=== PATIENT | male | born 1990 | race Caucasian/White ===

== ENCOUNTER 2019-06-16 09:04 | Emergency (ER) | payer BC ==
[~2019-06-16] VITALS: Ht 177.8 cm; Wt 181.8 kg
[~2019-06-16 09:04] MED LIST: APRISO0.375 GM PO; BACTRIM DS 8001 TAB PO; CEPHALEXIN500 M1 PO
[2019-06-16 09:12] VITALS: TEMP 97.9
[2019-06-16 10:21] LABS: BASO # 0.1 (0.0-0.2); BASO % 0.4 % (0.0-2.0); EOS # 0.4 (0.0-0.7); EOS % 3.1 % (0-4.0); GRAN # 8.5 (1.4-6.5); GRAN % 75.3 % (42.2-75.2); HEMOGLOBIN 17.1 g/dl (13.5-18.0); LYMPH # 1.5 (1.2-3.4); MEAN CELL VOLUME 90 fl (80.0-100.0); MEAN CORPUSCULAR HEMOGLOBIN 29 pg (27.0-31.0); MEAN CORPUSCULAR HGB CONC 32 g/dl (33.0-37.0); MEAN PLATELET VOLUME 11.1 fl (7.4-10.4); MONO # 0.9 (0.1-0.6); MONO % 7.7 % (1.7-9.3); PLATELET COUNT 265 K/mm3 (130-400); RED BLOOD COUNT 5.85 M/mm3 (4.20-5.60); REDCELL DISTRIBUTION WIDTH-CV 12.7 % (11.5-14.5)
[2019-06-16 10:30] LABS: HEMATOCRIT 52.8 % (42.0-52.0)
[2019-06-16 12:48] LABS: COLLECTION METHOD CLEAN CATCH
[2019-06-16 12:58] LABS: MUCOUS Present /lpf; PH 6 (5-8); SQUAMOUS EPITHELIAL None Seen /hpf; URINE APPEARANCE Clear; URINE BACTERIA None Seen /hpf; URINE BILIRUBIN Negative (NEGATIVE); URINE BLOOD Negative (NEGATIVE); URINE COLOR Yellow; URINE GLUCOSE Negative (NEGATIVE); URINE KETONE Negative (NEGATIVE); URINE LEUKOCYTE ESTERASE Negative (NEGATIVE); URINE NITRATE Negative (NEGATIVE); URINE PROTEIN(semi-quant) Negative (NEGATIVE); URINE RBC 0-2 /hpf
[2019-06-16] MEDS ORDERED: DOXYCYCLINE 10100 MG PO (13:42)
[2019-06-16] MEDS ORDERED: NORCO 325 MG-7.1 TAB PO (13:42)
[2019-06-16 14:42] VITALS: BP 139/79; PULSE 96
== END 2019-06-16 14:42 | disposition home or self-care (01) ==
LOC: COL.ER 09:04
PROVIDERS: Physician Assistant
DX: N45.3 Epididymo-orchitis (principal); E66.9 Obesity, unspecified; Z98.890 Other specified postprocedural states; Z87.19 Personal history of other diseases of the digestive system
CPT/HCPCS: J0696; J1170; J2270; J2405; J7030; Q9967

== ENCOUNTER 2019-06-19 16:00 | Inpatient (IN) | payer BC ==
[~2019-06-19] VITALS: Ht 177.8 cm; Wt 160.8 kg
[~2019-06-19 16:00] MED LIST changes: +DOXYCYCLINE 10100 MG PO; +NORCO 325 MG-7.1 TAB PO
[2019-06-19 16:51] LABS: BASO # 0.1 (0.0-0.2); BASO % 0.3 % (0.0-2.0); EOS # 0.1 (0.0-0.7); EOS % 0.5 % (0-4.0); GRAN # 12.8 (1.4-6.5); HEMATOCRIT 50.6 % (42.0-52.0); HEMOGLOBIN 16.6 g/dl (13.5-18.0); LYMPH # 1.1 (1.2-3.4); LYMPH % 7.3 % (20.0-51.0); MEAN CELL VOLUME 89 fl (80.0-100.0); MEAN CORPUSCULAR HEMOGLOBIN 29 pg (27.0-31.0); MEAN CORPUSCULAR HGB CONC 33 g/dl (33.0-37.0); MEAN PLATELET VOLUME 10.6 fl (7.4-10.4); MONO # 1.1 (0.1-0.6); MONO % 7.2 % (1.7-9.3); PLATELET COUNT 250 K/mm3 (130-400); RED BLOOD COUNT 5.68 M/mm3 (4.20-5.60); REDCELL DISTRIBUTION WIDTH-CV 12.7 % (11.5-14.5)
[2019-06-19 17:08] LABS: BILIRUBIN,TOTAL 2.8 mg/dL (0.0-1.0); CALCIUM 8.9 mg/dL (8.4-10.2); CREATININE, serum 1.26 (0.66-1.25); POTASSIUM 3.6 mmol/L (3.4-5.0); TOTAL PROTEIN 7.9 gm/dL (6.4-8.2)
[2019-06-19 17:39] VITALS: BP 131/74; PULSE 114; TEMP 100
[2019-06-19 18:00] VITALS: BP 102/69; PULSE 108; TEMP 98.8
[2019-06-19 22:22] VITALS: BP 128/71; PULSE 99; TEMP 98.7
[2019-06-19 22:27] LABS: COLLECTION METHOD CLEAN CATCH
[2019-06-19 22:41] LABS: MUCOUS Present /lpf; PH 6 (5-8); SQUAMOUS EPITHELIAL None Seen /hpf; URINE APPEARANCE Turbid; URINE BACTERIA Occasional /hpf; URINE BILIRUBIN Positive (NEGATIVE); URINE BLOOD Negative (NEGATIVE); URINE COLOR Amber; URINE GLUCOSE Negative (NEGATIVE); URINE KETONE 1+ (NEGATIVE); URINE LEUKOCYTE ESTERASE Negative (NEGATIVE); URINE NITRATE Negative (NEGATIVE); URINE PROTEIN(semi-quant) 2+ (NEGATIVE); URINE RBC 0-2 /hpf; URINE UROBILINOGEN >=4.0 mg/dL (NEGATIVE)
[2019-06-20] VITALS (7 sets, daily range): BP systolic 112–140; BP diastolic 68–80; PULSE 93–103; TEMP 97.8–98.7
--- NOTE | 2019-06-20 05:25 | NUR ---
PT REQUEST PAIN MED FOR SCROTAL PAIN. NO CHANGE IN STATUS. SEE MAR FOR PAIN MED GIVEN. PT REQUEST SLEEPING MED FOR TONIGHT. WILL REPORT TO NEXT SHIFT.
[2019-06-20 07:21] LABS: BASO # 0.1 (0.0-0.2); BASO % 0.4 % (0.0-2.0); EOS # 0.2 (0.0-0.7); EOS % 1.4 % (0-4.0); GRAN # 9.1 (1.4-6.5); GRAN % 76.4 % (42.2-75.2); HEMATOCRIT 48.8 % (42.0-52.0); HEMOGLOBIN 15.8 g/dl (13.5-18.0); LYMPH # 1.3 (1.2-3.4); LYMPH % 10.9 % (20.0-51.0); MEAN CELL VOLUME 90 fl (80.0-100.0); MEAN CORPUSCULAR HEMOGLOBIN 29 pg (27.0-31.0); MEAN CORPUSCULAR HGB CONC 32 g/dl (33.0-37.0); MEAN PLATELET VOLUME 10.7 fl (7.4-10.4); MONO # 1.2 (0.1-0.6); MONO % 10.2 % (1.7-9.3); PLATELET COUNT 261 K/mm3 (130-400); RED BLOOD COUNT 5.42 M/mm3 (4.20-5.60); REDCELL DISTRIBUTION WIDTH-CV 12.9 % (11.5-14.5)
--- NOTE | 2019-06-20 10:13 | NUR ---
Initial visit; Patient thanked Apiarist for looking in on him and offering spiritual care, though patient declined at this time.
--- NOTE | 2019-06-20 11:36 | NUR ---
Senior Property Accountant met with patient to discuss discharge planning. Patient lives outside of [place] with his mother, Radha (ph#[phone]). Patient sees Dr. Pimentel for primary care and obtains medications from [facility] pharmacy with no difficulties. Patient does not use any DME and also does not have Advance Directives. Patient not interested in setting up AD at this time. Patient plans to return home upon discharge. No additional concerns at this time.
--- NOTE | 2019-06-20 19:25 | NUR ---
PT HAD NO ISSUES OR CONCERNS VOICED THIS SHIFT. NEEDED ONE DOSE OF NORCO THIS SHIFT. IV FLUIDS INFUSING WITHOUT ISSUES. GROIN ELEVATED, OFFERED ICE THROUGHOUT SHIFT AND DENIED NEED.
--- NOTE | 2019-06-20 20:30 | NUR ---
Initial shift assessment done- requesting pain pill for pain 5/10 to scrotum,also requesting melatonin for sleep- will give as ordered, Scrotun remains edematous and red- elevated and ice put on at this time
[2019-06-21 00:10] VITALS: BP 132/66; PULSE 90; TEMP 98.4
[2019-06-21 03:51] VITALS: BP 121/74; PULSE 101; TEMP 98.6
--- NOTE | 2019-06-21 06:01 | NUR ---
Quiet night- no requests- states does not need pain meds at this time-did sleep well last night
[2019-06-21 08:26] VITALS: BP 117/62; PULSE 89; TEMP 98.7
[2019-06-21 12:16] VITALS: BP 128/62; PULSE 95; TEMP 98
[2019-06-21 16:34] VITALS: BP 123/68; PULSE 91; TEMP 98.1
--- NOTE | 2019-06-21 19:32 | NUR ---
PT HAD UNEVENTFUL DAY. HAS NEEDED PAIN MEDS A COUPLE OF TIMES THIS SHIFT. ICE APPLIED ONCE THIS AM. NO NOTED SWELLING REDUCTION.
--- NOTE | 2019-06-21 20:00 | NUR ---
Pt resting in bed. No distress noted. Pt reports that pain is controlled at this time with pain medication that given by dayshift. Scrotum is edematous and reddened. Pt reports that he thinks it is looking better. Scrotum elevated with pillow case. Pt denies need for Ice pack at this time. Respraitons even and unlabored. Lungs clear. Abdomen soft, nontedner. BS+. Pt voiding without difficulty. Pt denies needs.
[2019-06-21 20:27] VITALS: BP 141/75; PULSE 96; TEMP 98.7
[2019-06-22 00:41] VITALS: BP 135/71; PULSE 87; TEMP 98.3
[2019-06-22 04:02] VITALS: BP 139/76; PULSE 91; TEMP 97.8
--- NOTE | 2019-06-22 06:00 | NUR ---
Pt sleeping this AM. No distress noted. He has rested well throughout the night without complaints.
--- NOTE | 2019-06-22 07:20 | NUR ---
Reports desi to Lisseth RAMOS.
[2019-06-22 08:39] VITALS: BP 134/75; PULSE 94; TEMP 98.2
--- NOTE | 2019-06-22 10:25 | NUR ---
Pt assessment completed and charted. Pt A&O, laying in bed, scrotum elevated w/ pillowcase, denies pain medication at this time, denies need for ice pack. IVF infusing to LAC w/o complications. LS cta, BSx4, heart RRR, pulses strong bilaterally. Pt denies other needs at this time. Call light within reach.
--- NOTE | 2019-06-22 10:31 | NUR ---
Pt to discharge, attempted to contact Dr. Mendez for clarification on discharge prescriptions. Awaiting call back at this time. Pt also requesting pain medication. [place] PRN administered per AUG.
[2019-06-22] MEDS ORDERED: LEVAQUIN 5500 MG/TA1 PO (10:43)
--- NOTE | 2019-06-22 10:49 | NUR ---
Dr. Mendez returned phone call, prescriptions clarified. Discharge instructions discussed and reviewed w/ patient who verbalized understanding. All questions answered. LAC IV dc'd w/ catheter tip intact and no complications. No further needs expressed. Pt awaiting ride for discharge.
--- NOTE | 2019-06-22 12:01 | NUR ---
Pt escorted out via WC by this nurse. No further needs expressed.
== END 2019-06-22 12:02 | disposition home health service (06) | DRG 728 ==
LOC: COL.ER 16:00 → MEDICAL 16:33
PROVIDERS: Family Medicine; ADMIT Urology
DX: N45.3 Epididymo-orchitis (principal); Z79.891 Long term (current) use of opiate analgesic; Z88.1 Allergy status to other antibiotic agents
CPT/HCPCS: J0696; J1956; J2405; J3010; J7030

== ENCOUNTER → 2019-11-27 | Outpatient (CLI) | payer BC ==
[~2019-11-27] MED LIST changes: +LEVAQUIN 5500 MG/TA1 PO
== END ==
LOC: COL.RAD 13:54
DX: N43.3 Hydrocele, unspecified (principal)

== ENCOUNTER 2019-12-09 12:57 | Observation (INO) | payer BC ==
[~2019-12-09] VITALS: Ht 175.3 cm; Wt 144.8 kg
[2019-12-09] VITALS (11 sets, daily range): BP systolic 121–147; BP diastolic 57–82; PULSE 95–126; TEMP 97.7–99.5
--- NOTE | 2019-12-09 18:56 | NUR ---
Patient has done well since up from OR. Drowsy and arouses to voice and touch. Low transverse dressing with shadowing noted on dressing. Scrotal support on. Post op VSS. Post op fluids to right hand without complications. Denies further needs at this time. Reported off to rn shift mgr.
--- NOTE | 2019-12-09 20:33 | NUR ---
Received report form Lesvia Albarado. Pt has been sleeping until now. pt dressig did have some drainage but has not changed since shift report. Pt incision site has been monitored. Pt vital has also been the same since bedside resport was given. Pt heart rate has been from 110-119 but Lesvia Albarado stated that his heart rate has been in this range since he's arrived. Pt is currently tolerating ice chips well. Pt has his call light within reach at this time.
--- NOTE | 2019-12-10 | NUR ---
Pt has ambulated to the restroom twice during the shift. Pt stated that his pain is ok at this time. Pt dressing on his lower abdomen did have some drainage seen through the dressing. The dressing was reinforced with a 2 4x4's and tape. Pt has had no other concerns throughout the night. Pt has his call light within reach. Has been tolerating fluids well during the night.
[2019-12-10 03:44] VITALS: BP 108/58; PULSE 101; TEMP 97.9
--- NOTE | 2019-12-10 06:39 | NUR ---
Pt currently sleeping in bed at this time. Call light within reach.
--- NOTE | 2019-12-10 07:19 | NUR ---
Reported off to RICHARD Baumann. Pt is currently sleeping in bed. Pt has his call light within reach.
[2019-12-10 08:29] VITALS: BP 131/71; PULSE 98; TEMP 98.1
--- NOTE | 2019-12-10 08:33 | NUR ---
Assessment completed, alert/oriented, vital signs stable, reports moderate pain discomfort, reports tolerating PO intake well, abd soft/ BS sluggish, I encouraged ambulation, patient is voiding urine without difficulty, jock strap for support, RLQ/ suprapubic incision has some bloody drainainge and dressing reinforced, has been by to eval patient and stated he would check back in later to see how patient is doing and possible D/C if he is feeling up to it, advancing diet, will continue to monitor
--- NOTE | 2019-12-10 09:46 | NUR ---
SW met with the patient to discuss discharge plan. The patient lives in [place] with his mother, Padmini (ph#[phone]). He reports independence with ADLs and does not have any DME. The patient's PCP is Dr. Fab Pimentel and he receives his medications at [facility]. He reports no difficulties obtaining his meds. The patient does not have advanced directives and he was not interested in completing them at this time. The patient plans to return home with his mother upon discharge. No additional needs at this time.
--- NOTE | 2019-12-10 11:26 | NUR ---
First visit from the military aircraft designer. No needs right now.
[2019-12-10 11:36] VITALS: BP 135/78; PULSE 93; TEMP 98
[2019-12-10 16:26] VITALS: BP 127/70; PULSE 95; TEMP 98.1
[2019-12-10 20:00] VITALS: BP 140/77; PULSE 101; TEMP 97.8
--- NOTE | 2019-12-10 21:20 | NUR ---
Resting in bed. Assessment complete. Lungs clear. Heart sounds normal. Bowels active x4. Pulses strong throughout. No edema noted. INT right hand without complications. ABD incision dressing with drainage. Does not need reinforced at this time. Jock strap on as ordered. Denies pain at this time. Denies other needs. Call light in reach.
--- NOTE | 2019-12-11 00:10 | NUR ---
Resting in bed. Dressing to ABD reinforced at this time. Denies other needs. Call light in reach.
[2019-12-11 00:17] VITALS: BP 146/64; PULSE 101; TEMP 98.2
[2019-12-11 04:00] VITALS: BP 153/76; PULSE 102; TEMP 98.3
--- NOTE | 2019-12-11 04:14 | NUR ---
Resting in bed. Denies needs. call light in reach.
--- NOTE | 2019-12-11 06:24 | NUR ---
Patient had uneventful night. Resting in bed this AM. ABD dressing reinforced during night . Denies needs this AM. Call light in reach.
[2019-12-11 07:09] VITALS: BP 138/69; PULSE 96; TEMP 98.3
--- NOTE | 2019-12-11 07:09 | NUR ---
Report given to RICHARD Blanchard
--- NOTE | 2019-12-11 09:02 | NUR ---
Patient resting in bed. Alert & oriented. Minimal complaints of pain. Patient denies nausea. He reports passing flatus, no BMs since surgery. low transverese gauze dressing intact with drain benath. I encouraged activity & ambulation of the halls. offered hygiene, refused at this time. Scds off at this time.
--- NOTE | 2019-12-11 12:09 | NUR ---
Patient ready for discharge. rounded. [place] drain discontinued per orders. Stitch was removed. New gauze dressing placed to cover teddy. Patient given all discharge instructions including a scricpt for norco & medication safety reviewed. He is aware of follow up appt. We reviewed incision care & signs & symptoms of infections & when to notifty doctor. Patient wheeled out with all belongings, his mother taking him home.
== END 2019-12-11 12:11 | disposition home or self-care (01) ==
LOC: SDCO 12:57 → SURG 19:29 → SDCO 12-10 10:58 → SURG 12-10 11:01 → MEDICAL 12-11 10:04 → SURG 12-11 10:04
PROVIDERS: ADMIT Urology
DX: C62.11 Malignant neoplasm of descended right testis (principal); N43.3 Hydrocele, unspecified; Z88.1 Allergy status to other antibiotic agents; Z80.0 Family history of malignant neoplasm of digestive organs; Z87.19 Personal history of other diseases of the digestive system
CPT/HCPCS: OP; G0378; J0690; J1100; J1170; J2405; J2704; J3010; J7120

== ENCOUNTER → 2020-01-24 | Outpatient (CLI) | payer BC | LOC: COL.PUL 07:41 | DX: C62.90 Malignant neoplasm of unspecified testis, unspecified whether descended or undescended (principal) ==

== ENCOUNTER 2020-04-01 07:30 | Outpatient (RCR) | payer BC ==
[2020-02-19 08:55] LABS: HEMATOCRIT 38.9 % (42.0-52.0); HEMOGLOBIN 13.3 g/dl (13.5-18.0); MEAN CELL VOLUME 87 fl (80.0-100.0); MEAN CORPUSCULAR HEMOGLOBIN 30 pg (27.0-31.0); MEAN CORPUSCULAR HGB CONC 34 g/dl (33.0-37.0); PLATELET COUNT 201 K/mm3 (130-400); RED BLOOD COUNT 4.46 M/mm3 (4.20-5.60)
[2020-02-19 08:59] VITALS: BP 124/77; PULSE 88; TEMP 98.4
[2020-02-19 09:23] LABS: ALBUMIN 3.5 gm/dL (3.5-5.0); BILIRUBIN,TOTAL 0.5 mg/dL (0.0-1.0); CALCIUM 8.6 mg/dL (8.4-10.2); CREATININE, serum 0.88 (0.66-1.25); MAGNESIUM 1.8 mg/dL (1.6-2.3); TOTAL PROTEIN 6.4 gm/dL (6.4-8.2)
[2020-02-19 10:43] LABS: BAND 5 % (0-10); EOSINOPHIL 3 % (0-4); LYMPHOCYTE 71 % (20.0-51.0); METAMYELOCYTE 2 % (0-0); NEUTROPHILS 12 % (42.0-75.2); PLATELET ESTIMATE NORMAL (NORMAL)
--- NOTE | 2020-02-26 15:10 | NUR ---
Here for cares. contacted by EU staff earlier today. with sterile technique right upper arm PICC dressing change done with insertion site cleansed with chloraprep x 1, chlorhexidine impregnated disk applied, skin prep, stat lock, and tegaderm applied. no signs or symptoms of IV complications noted. no concerns voiced. to return next week for cares. voiced understanding of instructions.
[2020-02-26 15:24] VITALS: BP 110/71; PULSE 90; TEMP 98.6
[2020-02-26 15:47] LABS: HEMATOCRIT 40.6 % (42.0-52.0); HEMOGLOBIN 13.6 g/dl (13.5-18.0); MEAN CELL VOLUME 88 fl (80.0-100.0); MEAN CORPUSCULAR HEMOGLOBIN 29 pg (27.0-31.0); MEAN CORPUSCULAR HGB CONC 34 g/dl (33.0-37.0); MEAN PLATELET VOLUME 9.2 fl (7.4-10.4); PLATELET COUNT 375 K/mm3 (130-400); RED BLOOD COUNT 4.63 M/mm3 (4.20-5.60); REDCELL DISTRIBUTION WIDTH-CV 13.3 % (11.5-14.5)
[2020-02-26 15:55] LABS: ALBUMIN 3.6 gm/dL (3.5-5.0); BILIRUBIN,TOTAL 0.4 mg/dL (0.0-1.0); CALCIUM 8.9 mg/dL (8.4-10.2); CREATININE, serum 0.95 (0.66-1.25); POTASSIUM 4.2 mmol/L (3.4-5.0); TOTAL PROTEIN 6.7 gm/dL (6.4-8.2)
[2020-02-26 16:08] LABS: BAND 1 % (0-10); BASOPHIL 1 % (0-2); LYMPHOCYTE 26 % (20.0-51.0); MYELOCYTE 2 % (0-0); NEUTROPHILS 65 % (42.0-75.2)
[2020-02-26 16:09] LABS: ANISOCYTOSIS 1+; PLATELET ESTIMATE NORMAL (NORMAL)
[2020-03-04 07:54] VITALS: BP 125/69; PULSE 87; TEMP 98.2
--- NOTE | 2020-03-04 08:00 | NUR ---
Here for cares. with sterile technique right upper arm PICC dressing change done with insertion site cleansed with chloraprep x 1, chlorhexidine impregnate disk applied, skin prep, stat lock, and tegaderm applied. no signs or symptoms of IV complications noted. no concerns voiced. re-wrapped with teresa to protect catheter. to return next week for cares. voiced understanding of instructions.
[2020-03-04 08:03] LABS: HEMATOCRIT 42.1 % (42.0-52.0); HEMOGLOBIN 14.2 g/dl (13.5-18.0); MEAN CELL VOLUME 87 fl (80.0-100.0); MEAN CORPUSCULAR HEMOGLOBIN 29 pg (27.0-31.0); MEAN CORPUSCULAR HGB CONC 34 g/dl (33.0-37.0); MEAN PLATELET VOLUME 10.4 fl (7.4-10.4); PLATELET COUNT 375 K/mm3 (130-400); RED BLOOD COUNT 4.83 M/mm3 (4.20-5.60); REDCELL DISTRIBUTION WIDTH-CV 14.1 % (11.5-14.5)
[2020-03-04 10:50] LABS: BAND 4 % (0-10); LYMPHOCYTE 3 % (20.0-51.0); METAMYELOCYTE 1 % (0-0); NEUTROPHILS 90 % (42.0-75.2); PLATELET ESTIMATE NORMAL (NORMAL)
[2020-03-11 10:09] VITALS: BP 131/83; PULSE 96; TEMP 98.1
--- NOTE | 2020-03-11 10:15 | NUR ---
Here for cares. Right upper arm PICC intact with sterile dressing change done with insertion site cleansed with choraprep x 1, chlorhexidine impregnated disk applied, skin prep, stat lock, and tegaderm applied. no signs or symptoms of IV complications noted. no conerns voiced. wrapped with teresa to protect catheter. to return next week for cares. voiced understanding of instructions.
[2020-03-11 10:47] LABS: HEMATOCRIT 39.2 % (42.0-52.0); HEMOGLOBIN 13.7 g/dl (13.5-18.0); MEAN CELL VOLUME 85 fl (80.0-100.0); MEAN CORPUSCULAR HEMOGLOBIN 30 pg (27.0-31.0); MEAN CORPUSCULAR HGB CONC 35 g/dl (33.0-37.0); MEAN PLATELET VOLUME 10.8 fl (7.4-10.4); PLATELET COUNT 138 K/mm3 (130-400); RED BLOOD COUNT 4.62 M/mm3 (4.20-5.60); REDCELL DISTRIBUTION WIDTH-CV 13.2 % (11.5-14.5)
[2020-03-11 11:04] LABS: EOSINOPHIL 1 % (0-4); LYMPHOCYTE 43 % (20.0-51.0); NEUTROPHILS 54 % (42.0-75.2)
[2020-03-11 11:05] LABS: PLATELET ESTIMATE NORMAL (NORMAL)
--- NOTE | 2020-03-18 10:00 | NUR ---
here for cares. PICC intact right upper arm. Dressing change done with sterile technique. Insertion site cleansed with ChloraPrep 1, chlorhexidine impregnated disc applied, skin prep, StatLock, and Tegaderm applied. No signs or symptoms of IV complications noted. No concerns voiced. Arm wrapped with Wayne to protect catheter. Patient to return next week for cares. Patient voiced understanding of instructions.
[2020-03-18 10:14] VITALS: BP 119/61; PULSE 90; TEMP 97.8
[2020-03-18 10:24] LABS: HEMATOCRIT 37.1 % (42.0-52.0); HEMOGLOBIN 12.6 g/dl (13.5-18.0); MEAN CELL VOLUME 87 fl (80.0-100.0); MEAN CORPUSCULAR HEMOGLOBIN 29 pg (27.0-31.0); MEAN CORPUSCULAR HGB CONC 34 g/dl (33.0-37.0); MEAN PLATELET VOLUME 9.3 fl (7.4-10.4); PLATELET COUNT 204 K/mm3 (130-400); RED BLOOD COUNT 4.28 M/mm3 (4.20-5.60); REDCELL DISTRIBUTION WIDTH-CV 14.1 % (11.5-14.5)
[2020-03-18 10:38] LABS: ALBUMIN 3.6 gm/dL (3.5-5.0); BILIRUBIN,TOTAL 0.5 mg/dL (0.0-1.0); CALCIUM 8.7 mg/dL (8.4-10.2); CREATININE, serum 0.91 (0.66-1.25); MAGNESIUM 1.6 mg/dL (1.6-2.3); POTASSIUM 4.2 mmol/L (3.4-5.0); TOTAL PROTEIN 6.2 gm/dL (6.4-8.2)
[2020-03-18 12:06] LABS: BAND 1 % (0-10); EOSINOPHIL 3 % (0-4); NEUTROPHILS 1 % (42.0-75.2); NUCLEATED RED BLOOD CELL 1 (0-6); PLATELET ESTIMATE NORMAL (NORMAL)
[2020-03-18 12:07] LABS: LYMPHOCYTE 85 % (20.0-51.0)
[2020-03-25 07:51] VITALS: BP 124/62; PULSE 97; TEMP 97.8
--- NOTE | 2020-03-25 08:10 | NUR ---
Here for cares. Right upper arm PICC intact. Dressing change done with sterile technique insertion site cleansed with chloraprep x 1, chlorhexidine impregnated disk applied, skin prep, stat lock, and tegaderm applied. no signs or symptoms of IV complications noted. no concerns voiced. re-wrapped with an teresa to protect catheter. to return next week for cares. voiced understanding of instructions.
[2020-03-25 08:16] LABS: HEMOGLOBIN 13.4 g/dl (13.5-18.0); MEAN CELL VOLUME 89 fl (80.0-100.0); MEAN CORPUSCULAR HEMOGLOBIN 30 pg (27.0-31.0); MEAN CORPUSCULAR HGB CONC 34 g/dl (33.0-37.0); MEAN PLATELET VOLUME 9.1 fl (7.4-10.4); PLATELET COUNT 388 K/mm3 (130-400); REDCELL DISTRIBUTION WIDTH-CV 14.6 % (11.5-14.5)
[2020-03-25 08:22] LABS: ALBUMIN 3.7 gm/dL (3.5-5.0); BILIRUBIN,TOTAL 0.7 mg/dL (0.0-1.0); CREATININE, serum 1.03 (0.66-1.25); MAGNESIUM 1.5 mg/dL (1.6-2.3); TOTAL PROTEIN 6.3 gm/dL (6.4-8.2)
[2020-03-25 09:20] LABS: BAND 24 % (0-10); LYMPHOCYTE 13 % (20.0-51.0); METAMYELOCYTE 3 % (0-0); NEUTROPHILS 52 % (42.0-75.2); PLATELET ESTIMATE NORMAL (NORMAL)
[~2020-04-01] VITALS: Ht 175.3 cm; Wt 138.9 kg
[2020-04-01 07:30] VITALS: BP 114/75; PULSE 81; TEMP 98.5
[~2020-04-01 07:30] MED LIST changes: +CHEMO IV; +IBU600 MG PO; +ZOFRAN ODT8 MG PO
[2020-04-01 07:56] LABS: HEMOGLOBIN 12.4 g/dl (13.5-18.0); MEAN CELL VOLUME 86 fl (80.0-100.0); MEAN CORPUSCULAR HEMOGLOBIN 29 pg (27.0-31.0); MEAN CORPUSCULAR HGB CONC 34 g/dl (33.0-37.0); MEAN PLATELET VOLUME 10.9 fl (7.4-10.4); PLATELET COUNT 144 K/mm3 (130-400); RED BLOOD COUNT 4.23 M/mm3 (4.20-5.60)
--- NOTE | 2020-04-01 08:00 | NUR ---
Here for cares. PICC intact right upper arm with sterile dressing change done with insertion site cleansed with chloraprep x 1, chlorhexidine impregnated disk applied, skin prep, stat lock, and tegaderm applied. no signs or symptoms of IV complications noted. no concerns voiced. re-wrapped with an teresa to protect catheter. to return next week for cares. voiced understanding of instructions.
[2020-04-01 08:05] LABS: HEMATOCRIT 36.3 % (42.0-52.0)
[2020-04-01 08:10] LABS: BAND 4 % (0-10); LYMPHOCYTE 6 % (20.0-51.0); NEUTROPHILS 87 % (42.0-75.2); PLATELET ESTIMATE NORMAL (NORMAL)
== END 2020-04-02 09:08 | disposition home or self-care (01) ==
LOC: EUO 07:30
PROVIDERS: Internal Medicine Medical Oncology
DX: C62.11 Malignant neoplasm of descended right testis (principal)
CPT/HCPCS: C1751

== ENCOUNTER 2020-05-07 07:30 | Outpatient (RCR) | payer BC ==
--- NOTE | 2020-04-08 11:00 | NUR ---
PICC intact right upper arm with sterile dressing change done with insertion site cleansed with chloraprep x 1, chlorhexidine impregnated disk applied, skin prep, stat lock, and tegaderm applied. no signs or symptoms of IV complications noted. no concerns voiced. wrapped with an teresa to protect catheter. to return next week for cares. voiced understanding of instructions.
[2020-04-08 11:11] LABS: HEMOGLOBIN 10.9 g/dl (13.5-18.0); MEAN CELL VOLUME 85 fl (80.0-100.0); MEAN CORPUSCULAR HEMOGLOBIN 30 pg (27.0-31.0); MEAN CORPUSCULAR HGB CONC 35 g/dl (33.0-37.0); MEAN PLATELET VOLUME 10.7 fl (7.4-10.4); PLATELET COUNT 80 K/mm3 (130-400); RED BLOOD COUNT 3.68 M/mm3 (4.20-5.60); REDCELL DISTRIBUTION WIDTH-CV 13.4 % (11.5-14.5)
[2020-04-08 11:14] LABS: HEMATOCRIT 31.4 % (42.0-52.0)
[2020-04-08 11:18] VITALS: BP 117/82; PULSE 92; TEMP 98.5
[2020-04-08 11:40] LABS: BAND 7 % (0-10); EOSINOPHIL 1 % (0-4); LYMPHOCYTE 32 % (20.0-51.0); NEUTROPHILS 60 % (42.0-75.2); PLATELET ESTIMATE NORMAL (NORMAL)
--- NOTE | 2020-04-15 07:45 | NUR ---
Here for cares. PICC intact right upper arm with sterile dressing change done with insertion site cleansed with chloraprep x 1, chlorhexidine impregnated disk applied, skin prep, stat lock, and tegaderm applied. no signs or symptoms of IV complications noted. no concerns voiced. re-wrapped with teresa to protect catheter. to return next week for cares. voiced understanding of instructions.
[2020-04-15 07:56] VITALS: BP 103/72; PULSE 93; TEMP 97
[2020-04-15 08:09] LABS: HEMOGLOBIN 10.9 g/dl (13.5-18.0); MEAN CELL VOLUME 90 fl (80.0-100.0); MEAN CORPUSCULAR HEMOGLOBIN 30 pg (27.0-31.0); MEAN CORPUSCULAR HGB CONC 34 g/dl (33.0-37.0); PLATELET COUNT 189 K/mm3 (130-400); RED BLOOD COUNT 3.62 M/mm3 (4.20-5.60); REDCELL DISTRIBUTION WIDTH-CV 15.8 % (11.5-14.5)
[2020-04-15 08:37] LABS: ALBUMIN 3.9 gm/dL (3.5-5.0); BILIRUBIN,TOTAL 0.6 mg/dL (0.0-1.0); CALCIUM 9.1 mg/dL (8.4-10.2); CREATININE, serum 1.08 (0.66-1.25); MAGNESIUM 1.3 mg/dL (1.6-2.3); POTASSIUM 3.9 mmol/L (3.4-5.0); TOTAL PROTEIN 6.6 gm/dL (6.4-8.2)
[2020-04-15 08:42] LABS: HEMATOCRIT 32.5 % (42.0-52.0)
[2020-04-15 09:22] LABS: BAND 30 % (0-10); EOSINOPHIL 1 % (0-4); LYMPHOCYTE 20 % (20.0-51.0); METAMYELOCYTE 5 % (0-0); MYELOCYTE 1 % (0-0); NEUTROPHILS 38 % (42.0-75.2); SPHEROCYTE 1+
[2020-04-15 09:23] LABS: PLATELET ESTIMATE NORMAL (NORMAL)
[2020-04-22 08:38] LABS: MEAN CELL VOLUME 91 fl (80.0-100.0); MEAN CORPUSCULAR HEMOGLOBIN 30 pg (27.0-31.0); MEAN CORPUSCULAR HGB CONC 33 g/dl (33.0-37.0); PLATELET COUNT 470 K/mm3 (130-400); RED BLOOD COUNT 3.62 M/mm3 (4.20-5.60); REDCELL DISTRIBUTION WIDTH-CV 16.8 % (11.5-14.5)
[2020-04-22 08:45] VITALS: BP 109/73; PULSE 78; TEMP 98
[2020-04-22 09:29] LABS: BAND 5 % (0-10); LYMPHOCYTE 6 % (20.0-51.0); NEUTROPHILS 84 % (42.0-75.2); PLATELET ESTIMATE NORMAL (NORMAL)
--- NOTE | 2020-04-29 08:00 | NUR ---
here for cares. PICC intact right upper arm. Sterile dressing change done with insertion site cleansed with ChloraPrep 1, chlorhexidine impregnated disc applied, skin prep, StatLock, and Tegaderm applied. No signs or symptoms of IV complications noted. No concerns voiced. Patient to return next week for cares. Patient voiced understanding of instructions.
[2020-04-29 08:16] VITALS: BP 118/83; PULSE 105; TEMP 98.1
[2020-04-29 08:33] LABS: MEAN CELL VOLUME 90 fl (80.0-100.0); MEAN CORPUSCULAR HGB CONC 34 g/dl (33.0-37.0); MEAN PLATELET VOLUME 10.7 fl (7.4-10.4); PLATELET COUNT 163 K/mm3 (130-400); RED BLOOD COUNT 3.18 M/mm3 (4.20-5.60); REDCELL DISTRIBUTION WIDTH-CV 15.3 % (11.5-14.5)
[2020-04-29 08:35] LABS: HEMATOCRIT 28.6 % (42.0-52.0); HEMOGLOBIN 9.6 g/dl (13.5-18.0); MEAN CORPUSCULAR HEMOGLOBIN 30 pg (27.0-31.0)
[2020-04-29 10:11] LABS: BAND 17 % (0-10); LYMPHOCYTE 11 % (20.0-51.0); NEUTROPHILS 70 % (42.0-75.2)
[2020-04-29 10:12] LABS: PLATELET ESTIMATE NORMAL (NORMAL)
--- NOTE | 2020-05-06 08:00 | NUR ---
Here for cares. PICC intact right upper arm with sterile dressing change done with insertion site cleansed with chloraprep x 1, chlorhexidine impregnated disk applied, skin prep, stat lock, and tegaderm applied. no signs or symptoms of IV complications noted. no concerns voiced. lower edge of dressing with red rash area and covered with adaptic and telfa. arm wrapped with an teresa to protect catheter. has a doctor appointment on Monday.
[2020-05-06 08:15] VITALS: BP 116/71; PULSE 98; TEMP 98.5
[2020-05-06 08:19] LABS: MEAN CELL VOLUME 94 fl (80.0-100.0); MEAN CORPUSCULAR HGB CONC 33 g/dl (33.0-37.0); MEAN PLATELET VOLUME 10.4 fl (7.4-10.4); PLATELET COUNT 127 K/mm3 (130-400); RED BLOOD COUNT 2.98 M/mm3 (4.20-5.60); REDCELL DISTRIBUTION WIDTH-CV 17.1 % (11.5-14.5)
[2020-05-06 08:28] LABS: ALBUMIN 3.5 gm/dL (3.5-5.0); BILIRUBIN,TOTAL 0.6 mg/dL (0.0-1.0); CREATININE, serum 1.1 (0.66-1.25); POTASSIUM 3.5 mmol/L (3.4-5.0); TOTAL PROTEIN 5.9 gm/dL (6.4-8.2)
[2020-05-06 08:30] LABS: MAGNESIUM 0.6 mg/dL (1.6-2.3)
[2020-05-06 08:31] LABS: HEMATOCRIT 27.9 % (42.0-52.0); HEMOGLOBIN 9.2 g/dl (13.5-18.0); MEAN CORPUSCULAR HEMOGLOBIN 31 pg (27.0-31.0)
[2020-05-06 08:51] LABS: BAND 26 % (0-10); LYMPHOCYTE 16 % (20.0-51.0); METAMYELOCYTE 7 % (0-0); NEUTROPHILS 50 % (42.0-75.2); PLATELET ESTIMATE NORMAL (NORMAL)
[2020-05-06 17:05] VITALS: BP 111/61; PULSE 91; TEMP 98.6
[2020-05-06 17:35] VITALS: BP 114/58; PULSE 86; TEMP 98.6
[2020-05-06 22:24] LABS: HCG SERUM, QUANTITATIVE (BETA) <2 mIU/mL (0-5)
[~2020-05-07] VITALS: Ht 175.3 cm; Wt 140.2 kg
[2020-05-07 08:12] LABS: MEAN CELL VOLUME 94 fl (80.0-100.0); MEAN CORPUSCULAR HGB CONC 33 g/dl (33.0-37.0); MEAN PLATELET VOLUME 10.2 fl (7.4-10.4); PLATELET COUNT 181 K/mm3 (130-400); REDCELL DISTRIBUTION WIDTH-CV 17.5 % (11.5-14.5)
[2020-05-07 08:19] LABS: HEMATOCRIT 29.2 % (42.0-52.0); HEMOGLOBIN 9.6 g/dl (13.5-18.0); MEAN CORPUSCULAR HEMOGLOBIN 31 pg (27.0-31.0)
[2020-05-07 08:38] VITALS: BP 111/77; PULSE 95; TEMP 98.1
[2020-05-07 08:39] LABS: EOSINOPHIL 2 % (0-4); LYMPHOCYTE 15 % (20.0-51.0); METAMYELOCYTE 7 % (0-0); MYELOCYTE 2 % (0-0); NUCLEATED RED BLOOD CELL 7 (0-6); PLATELET ESTIMATE NORMAL (NORMAL); TOXIC GRANULATION PRESENT
[2020-05-07 08:40] LABS: ANISOCYTOSIS 1+
[2020-05-07 08:43] LABS: BAND 29 % (0-10); NEUTROPHILS 41 % (42.0-75.2)
[2020-05-07 08:46] LABS: ALBUMIN 3.7 gm/dL (3.5-5.0); BILIRUBIN,TOTAL 0.6 mg/dL (0.0-1.0); CALCIUM 7.6 mg/dL (8.4-10.2); CREATININE, serum 1.14 (0.66-1.25); POTASSIUM 3.8 mmol/L (3.4-5.0); TOTAL PROTEIN 6.3 gm/dL (6.4-8.2)
[2020-05-08] MEDS ORDERED: MAGNESIUM500 MG PO (10:09)
[2020-05-08 10:14] VITALS: BP 126/82; PULSE 96; TEMP 98.4
== END 2020-05-08 19:48 | disposition still patient (30) ==
LOC: EUO 07:30
PROVIDERS: Internal Medicine Medical Oncology
DX: C62.11 Malignant neoplasm of descended right testis (principal); E83.42 Hypomagnesemia
CPT/HCPCS: J3475